=== PATIENT | male | born 1930 | race Asian ===

== ENCOUNTER 2016-10-04 03:21 | Emergency (ER) | payer MEDICAID ==
--- NOTE | 2016-10-06 13:01 | ER ---
ADMIT: 10/04/2016 RM/LOC: ER [facility] MR#: [id number] [place], [place] [id number] [facility] [address] [place] [address] Emergency Room Report SEX: M AGE: 86 : 1930 DATE: 10/04/2016 HISTORY OF PRESENT ILLNESS: The patient is an 86-year-old male with a history of hypertension and diabetes, came to the ER with chief complaint of cough and increased difficulty breathing for the last 2 to 3 days. The patient also complains of congestion too. The patient also complains of yellow sputum. The patient denies any chest pain or leg swelling or leg pain. PHYSICAL EXAMINATION: GENERAL: The patient was sitting in bed, in no obvious distress. VITAL SIGNS: O2 saturation was 100% on room air. The patient had stable vitals. The patient was afebrile. HEENT/NECK: There was no oropharyngeal erythema or exudate. Trachea was midline. No bruit on the neck. No murmur on the neck. LUNGS: Clear, and I did not hear any crackles. HEART: Normal S1, S2 without any murmurs. ABDOMEN: Soft. EXTREMITIES: There was no swelling of the lower extremities. No rashes, no tenderness of the extremities. EMERGENCY ROOM COURSE: EKG was normal sinus rhythm without any signs of arrhythmia or ischemia. Troponin I was negative. Chest x-ray did not show any infiltration, but was questionable for peribronchial cuffing and possible acute bronchitis. The patient was reassured and was discharged to home with - [facility] and follow up with the primary doctor as needed. Scottie Morales MD/ stacy JOB #: [id number] CC: Scottie Morales MD, Attending Physician Russ Saleh MD, Family Physician
== END 2016-10-04 05:25 | disposition home or self-care (01) ==
LOC: ER 03:21
DX: J20.9 Acute bronchitis, unspecified (principal); E11.9 Type 2 diabetes mellitus without complications; I10 Essential (primary) hypertension